=== PATIENT | male | born 1940 | race Caucasian/White ===

== ENCOUNTER 2017-08-10 08:26 | Day surgery (SDC) | payer MEDICARE ==
[2017-08-07 12:45] VITALS: BMI 27.6
--- NOTE | 2017-08-10 01:02 | HP ---
HISTORY OF PRESENT ILLNESS: Mr. Ruiz is a very pleasant 77-year-old gentleman who presented for wicho mbar back pain that sits over his left-sided lower back and hip that withstand over the proximal ante rior thigh. He has had surgery last year in the [place] area for right lower extremity radiculopathy and had done well from that; however, more recently he has experienced different pain. Dr. Darius brown has injected this area with some minimal improved, but has now reached a point where he would like to pursue additional options. CT from [facility] reveals facet fracture to the right at L4. There also is an underlying spondylolisthesis at L4-L5 with foraminal compromise to the left with movement on flexion and extension films. He denies any weakness, but does have difficulty with walking. PAST MEDICAL HISTORY: Significant for prostate cancer, hypertension. CURRENT MEDICATIONS: Amlodipine, zolpidem, latanoprost, valacyclovir, fluticasone, VESIcare, Lupron, Amitiza, meloxicam, and Lyrica. ALLERGIES: No known drug allergies. PHYSICAL EXAMINATION: NEUROLOGIC: Patient is alert and oriented x3. His gait is mildly antalgic. Lower extremity motor e xam is normal. ASSESSMENT: Lumbar radiculopathy and spondylolisthesis. PLAN: Dr. Priest met with the patient, reviewed imaging and ultimately advocated for an L4-L5 fusion. He explained to the patient the risks, benefits, and alternatives to the procedure. The patient ex pressed understanding and would like to move forward with surgery as discussed. The patient is menta dereky competent and capable of making medical decisions for himself and we will move forward with surge ry as planned. Evans Way PA-C, dictating for Dr. Priest.
[2017-08-10] MEDS ORDERED: CEFAZOLIN/Water 2 GM/20 ML SYRINGE ONE ×2 (09:05→14:23)
[2017-08-10] MEDS ORDERED: Midazolam HCl 2 mg/2 ml Vial ONE (10:11)
[2017-08-10] MEDS ORDERED: Fentanyl 100 MCG/2 ML VIAL ONE ×3 (10:11→13:18)
[2017-08-10] MEDS ORDERED: Thrombin 5000 UNITS/5 ML VIAL ONE (10:18)
[2017-08-10] MEDS ORDERED: Bupivacaine 0.5% 10 ML VIAL ONE (10:18)
[2017-08-10] MEDS ORDERED: Lidocaine 2% w/Epinephrine 1:200K 20 ML VIAL ONE (11:47)
[2017-08-10] MEDS ORDERED: Ondansetron HCl/PF 4 MG/2 ML Vial ONE (12:01)
[2017-08-10] MEDS ORDERED: Propofol 200 MG/20 ML VIAL ONE (12:01)
[2017-08-10] MEDS ORDERED: PHENYLEPHRINE-NS 100 MCG/ML 10 ML SYRINGE ONE (12:01)
[2017-08-10] MEDS ORDERED: Labetalol 100 MG/20 ML MDV ONE (12:01)
[2017-08-10] MEDS ORDERED: Lidocaine 1% PF 5 ML VIAL ONE (12:01)
[2017-08-10] MEDS ORDERED: Dexamethasone 20 MG/5 ML VIAL ONE (12:01)
[2017-08-10] MEDS ORDERED: Glycopyrrolate 0.2 MG/ML 5 ML SYRINGE ONE (12:01)
[2017-08-10] MEDS ORDERED: ePHEDrine/0.9% NaCl/PF SYRINGE 50 mg/10 ml ONE (12:01)
--- NOTE | 2017-08-10 12:46 | OP ---
DATE OF PROCEDURE: 08/10/2017 SURGEON: Larry Priest M.D. ASSOCIATE PROFESSOR OF VIOLIN: Filiberto Way PA-C. INDICATION: Pain. PREOPERATIVE DIAGNOSIS: L4 upon L5 spondylolysis with spondylolisthesis. PROCEDURE: Bilateral L4-5 facetectomy, bilateral L4-5 posterolateral instrumented fusion. ANESTHESIA: General. TECHNIQUE: The patient was brought into the operating room and placed under general anesthesia. He was flipped from a supine to a prone position on the operating room table. A linear incision was tila nned over the L4-L5 segment. After prepping and draping and after appropriate operative pause, the i ncision was created. Soft tissues were swept away from midline. Self-retaining retractors were plac ed in the wound for optimal exposure. After confirming the appropriate levels with C-arm fluoroscopy , the facet joints were removed using Adson rongeurs, high-speed cutting drill bits, and Kerrisons. After identifying the pedicles at L4 and L5 as well as the respective exiting and descending nerve ro ots, pedicle screws were placed with the aid of C-arm fluoroscopy. An intraoperative 3D CT scan coul d not be performed, but an AP and lateral film was obtained. Rods were then placed across the screw heads and final tightened. Allograft and autograft material was placed in the lateral confines of th e instrumentation construct. The wound was irrigated. Hemostasis was maintained throughout. The wo und was then closed in anatomic layers and a pressure dressing was applied. There were no known proc edural complications.
[2017-08-10] MEDS ORDERED: Tamsulosin HCl 0.4 MG CAP ONE (12:57)
== END 2017-08-10 15:41 | disposition home or self-care (01) ==
LOC: SDC 08:26
PROVIDERS: ATTEND Neurological Surgery
PROC: 0SG1071 Fusion of 2 or more Lumbar Vertebral Joints with Autologous Tissue Substitute, Posterior Approach, Posterior Column, Open Approach (ICD-10-PCS; principal; 2017-08-10)
DX: M43.16 Spondylolisthesis, lumbar region (principal); M54.16 Radiculopathy, lumbar region; I10 Essential (primary) hypertension; Z79.899 Other long term (current) drug therapy; Z85.46 Personal history of malignant neoplasm of prostate; Z98.890 Other specified postprocedural states
CPT/HCPCS: 20930; 20936; 22612; 22840; 76001; 93005; 96374; C1713 ×2; 93010; J1100; J2001; J2250; J2405; J2704; J3010; J3490

== ENCOUNTER 2017-09-24 10:25 | Outpatient (CLI) | payer MEDICARE ==
--- NOTE | 2017-09-24 11:22 | RAD ---
TWO VIEWS LUMBAR SPINE: Date: 09-24-17 Comparison: 02-10-17 History: Re-evaluate lumbar spine following surgery. FINDINGS: There are five lumbar type vertebral bodies with bilateral pedicle screws present at the L4 and L5 le vels. There are bilateral vertically oriented interlocking rods. There is anterolisthesis of L4 on L5 measuring 1.5 cm, slightly improved when compared to prior imaging. There is osseous fusion at the L 5-S1 intervertebral disc level with anterior osteophyte formation. There is disc space narrowing at L 1-2, L2-3, L3-4, and L4-5 with L2-3 and L3-4 anterior osteophyte formation. No evidence for hardware failure. There are small calcifications in the right upper quadrant which may signify gallstones. IMPRESSION: Degenerative and posterior operative changes within the lumbar spine as described above. POS: [facility]
== END 2017-09-24 10:26 | disposition home or self-care (01) ==
LOC: TBSIIMAG 10:25
PROVIDERS: ATTEND Neurological Surgery
DX: M54.5 Low back pain (principal); M47.896 Other spondylosis, lumbar region; Z98.890 Other specified postprocedural states
CPT/HCPCS: 72100

== ENCOUNTER 2017-12-24 10:11 | Outpatient (CLI) | payer MEDICARE ==
--- NOTE | 2017-12-24 12:29 | CT ---
LUMBAR SPINE CT WITHOUT CONTRAST: DATE: 12/24/17. COMPARISON: 12/04/16. HISTORY: Back spasms, History of lumbar spine surgery, lumbar radiculopathy. TECHNIQUE: Serial axial CT imaging at 3 mm intervals through the lumbar spine without contrast. Coronal and sag ittal reformatted imaging obtained. FINDINGS: Evaluation for central canal and neural foraminal stenosis is limited on routine CT. Cholelithiasis is noted. There is scattered atherosclerotic calcification of the abdominal aorta and its branches. Moderate degenerative change of bilateral sacroiliac joints noted. Partially imaged reservoir for p enile implant noted in ventral aspect of left lower abdomen. Bilateral pedicle screws are present at L4 and L5 with vertically oriented interlocking rods. Anterolisthesis of L4 on L5 measures 7 mm. T12-L1: No osseous cause of significant central canal or neural foraminal stenosis. Mild right-side d facet hypertrophy. L1-2: There is disk space narrowing with vacuum disk formation and mild disk bulge causing at least mild central canal stenosis. There is right-sided facet hypertrophy with moderate right neural valery inal stenosis. L2-3: There is disk space narrowing and a vacuum disk with disk bulge. Bilateral facet hypertrophy and hypertrophy of the ligamentum flavum noted, right greater than left. Mild to moderate central ca nal stenosis noted with mild left and moderate right neural foraminal stenosis. L3-4: Disk space narrowing, posterior disk-osteophyte complex, anterior osteophyte formation, and va cuum disk formation noted. Bilateral facet hypertrophy. Mild right and moderate left neural foramin al stenosis. Mild central canal stenosis suspected. L4-5: There is disk space narrowing and vacuum disk formation. There is bilateral facet hypertrophy . There is evidence of bilateral facetectomy. Moderate neural foraminal narrowing is suspected. Ev aluation for central canal stenosis is limited secondary to streak artifact. L5-S1: Mild bilateral facet hypertrophy. Partial fusion at the intervertebral disk level. No signi ficant central canal or neural foraminal stenosis appreciated. No acute fracture or dislocation. No evidence for hardware failure. IMPRESSION: Multilevel degenerative change and postoperative change present within the lumbar spine as detailed a luciano. POS: [facility]
== END 2017-12-24 10:12 | disposition home or self-care (01) ==
LOC: TBSIIMAG 10:11
PROVIDERS: ATTEND Neurological Surgery
DX: M47.26 Other spondylosis with radiculopathy, lumbar region (principal); Z98.890 Other specified postprocedural states
CPT/HCPCS: 72131

== ENCOUNTER 2018-07-08 09:42 | Outpatient (CLI) | payer MEDICARE ==
--- NOTE | 2018-07-08 17:17 | MRI ---
MRI OF BRAIN WITH AND WITHOUT CONTRAST MRI IAC WITH AND WITHOUT CONTRAST 07/08/18 CLINICAL HISTORY: 78-year-old male with history of dizziness. FINDINGS: There is mild parenchymal volume loss with compensatory dilatation of ventricular system. Minimal chr onic ischemic disease of the cerebral white matter is present. No acute territorial infarction, mass effect of midline shift. There is no evidence mass or pathologic enhancement of either CP angle ciste rn. Skull base flow voids are maintained. No pathologic intra-axial enhancement. IMPRESSION: 1. No acute intracranial abnormality. 2. No evidence of mass or pathologic enhancement involving either 7th or 8th cranial nerve compl ex. POS: [facility]
== END 2018-07-08 09:43 | disposition home or self-care (01) ==
LOC: SCSMRI 09:42
PROVIDERS: ATTEND Otolaryngology Plastic Surgery within the Head & Neck
DX: H83.2X3 Labyrinthine dysfunction, bilateral (principal)
CPT/HCPCS: 70553; 82565

== ENCOUNTER 2018-07-13 14:09 | Outpatient (CLI) | payer MEDICARE | END 2018-07-13 14:10 | disposition home or self-care (01) | LOC: CTENTCT 14:09 | PROVIDERS: ATTEND Otolaryngology Plastic Surgery within the Head & Neck | DX: J32.9 Chronic sinusitis, unspecified (principal) | CPT/HCPCS: 70486 ==

== ENCOUNTER 2019-01-07 19:43 | Emergency (ER) | payer MEDICARE | END 2019-01-07 20:14 | disposition home or self-care (01) | LOC: ERS 19:43 | DX: S42.301A Unspecified fracture of shaft of humerus, right arm, initial encounter for closed fracture (principal); I10 Essential (primary) hypertension; E78.5 Hyperlipidemia, unspecified; Z79.891 Long term (current) use of opiate analgesic; Z79.899 Other long term (current) drug therapy; W18.30XA Fall on same level, unspecified, initial encounter | CPT/HCPCS: 99283 ==

== ENCOUNTER 2019-07-25 10:28 | Outpatient (CLI) | payer MEDICARE ==
--- NOTE | 2019-07-25 12:41 | MRI ---
MRI Cervical spine without contrast: HISTORY: Right hand and arm numbness. Cervical spine stenosis. COMPARISON: None FINDINGS: The craniocervical junction is unremarkable. There are degenerative changes seen at the articulation of the odontoid with the anterior arch of C1. No significant cord signal abnormality. Paravertebral soft tissues have a normal appearance and normal signal intensity. C1-2:No significant stenosis. C2-3: There is a disc osteophyte complex with central disc protrusion which narrows the ventral subar achnoid space. This does contact the spinal cord but does not appear to result in significant mass effect on the spinal cord. The neural foramina are patent C3-4: There is a mild disc osteophyte complex with narrowing of the ventral subarachnoid space. There is slight flattening of the anterior aspect of the spinal cord. Facet degenerative changes are present at this level. Mild bilateral neural foraminal narrowing is present. C4-5: There is loss of intervertebral disc height. There is a broad-based disc osteophyte complex pre sent. This narrows the ventral subarachnoid space and results in flattening of the anterior aspect of the spinal cord. Mild left and moderate right-sided neural foraminal narrowing is present. C5-6: There is loss of intervertebral disc height. Disc osteophyte complex is present resulting in mi ld narrowing of the central spinal canal with slight flattening of the anterior aspect of the spinal cord. Moderate to severe bilateral neural foraminal narrowing is present. Mild facet hypertrop hic changes are noted. C6-7: There is loss of intervertebral disc space height with mild endplate degenerative changes. Ther e is a broad-based disc osteophyte complex resulting in slight effacement of the ventral aspect of the subarachnoid space. Moderate to severe bilateral neural foraminal narrowing is present. C7-T1: No significant disc bulge or disc herniation is seen. There are facet degenerative changes. Ce ntral spinal canal and neural foramina are patent this level. IMPRESSION: Multilevel degenerative changes with varying degrees of neural foraminal narrowing with moderate and moderate to severe degrees of neural foraminal narrowing seen at multiple levels.
== END 2019-07-25 10:29 | disposition home or self-care (01) ==
LOC: SCSMRI 10:28
PROVIDERS: ATTEND Orthopaedic Surgery Hand Surgery
DX: M48.02 Spinal stenosis, cervical region (principal); M47.22 Other spondylosis with radiculopathy, cervical region
CPT/HCPCS: 72141

== ENCOUNTER 2019-08-02 03:08 | Inpatient (IN) | payer MEDICARE ==
[2019-08-02] MEDS ORDERED: Dextrose 5 % And 0.9 % NaCl 1,000 ML IV SCH (06:15)
[2019-08-02] MEDS ORDERED: Morphine 4 MG/ML VIAL SLOW IVP PRN (06:51)
[2019-08-02] MEDS ORDERED: Morphine 2 MG/ML SYRINGE SLOW IVP PRN (06:51)
[2019-08-02] MEDS ORDERED: hydrALAZINE 20 MG/ML VIAL SLOW IVP PRN (06:51)
[2019-08-02] MEDS ORDERED: Ondansetron ODT 4 MG TAB PO PRN (06:51)
[2019-08-02] MEDS ORDERED: Ondansetron PF 4 MG/2 ML Vial IVP PRN (06:51)
[2019-08-02] MEDS ORDERED: Acetaminophen 500 MG TAB PO PRN (06:54)
[2019-08-02] MEDS ORDERED: Ketorolac Tromethamine 30 MG/ML VIAL IVP PRN (06:54)
[2019-08-02] MEDS ORDERED: traMADol HCl 50 MG TAB PO PRN ×2 (06:56→20:12)
[2019-08-02] MEDS ORDERED: Trospium 20 MG TAB PO PRN (07:11)
--- NOTE | 2019-08-02 07:37 | HP ---
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 He is busy ambulating independently during the day and is very active. He reports an episode of epigastric right upper quadrant pain last week that resolved and now reoccurred last night, who presented to the emergency room. CT angio obtained for this epigastric pain, revealing gallstones, inflammation of the gallbladder. The patient was transferred to this facility, where ultrasound reveals gallbladder sludge, normal bile duct caliber, and normal liver function tests. EKG and troponins were normal. ALLERGIES: NONE. TOBACCO: None. ALCOHOL: Rarely. MEDICATIONS: At home, he takes, 1. Valtrex 500 mg at bedtime. 2. Tramadol p.r.n. pain. 3. Ambien 10 mg at bedtime. 4. VESIcare 10 mg p.o. p.r.n. 5. Aspirin 81 mg a day. 6. Amlodipine 10 mg at bedtime. 7. Voltaren 50 mg t.i.d. PAST MEDICAL HISTORY: Hypertension, chronic back pain, elevated cholesterol. The patient has never had a colonoscopy. He has never had a cardiac event or cardiac evaluation to his knowledge. PAST SURGICAL HISTORY: Right shoulder surgery last year Dr. Villanueva. Lumbar surgery by Dr. Trenton Priest in the past and prior to that in [place]. Bilateral inguinal hernia repair. Right ankle ORIF. Open prostatectomy. The patient wears a brief, has occasional incontinence. He is ambulatory independently. REVIEW OF SYSTEMS: Ten-point noncontributory. No cardiac history known. No chest pain. No chest pressure symptoms. PHYSICAL EXAMINATION: VITAL SIGNS: Temperature 98 degrees, heart rate 63, blood pressure 167/81, weight 95 kg. HEAD, EYES, EARS, NOSE, AND THROAT: Unremarkable. Sclerae nonicteric. SKIN: Nonjaundiced. LYMPHATICS: Axilla, neck, and groins without lymphadenopathy. LUNGS: Clear to auscultation. CARDIAC: Regular rate and rhythm. No murmur or gallop. ABDOMEN: Soft. Minimal tenderness, epigastrium and right upper quadrant. EXTREMITIES: Unremarkable. LABORATORY DATA: Sodium 144, potassium 3.7, BUN 21, creatinine 1.03. Liver function tests normal. Urinalysis clear. White count 8, hemoglobin 13, platelet count 150,000. ASSESSMENT AND PLAN: 1. Cholecystitis, cholelithiasis. We recommend laparoscopic video cholecystectomy. Risks of infection, bleeding, visceral biliary injury were discussed. He consents. We will plan laparoscopic cholecystectomy today. Most likely discharge home postoperatively. He understands risks of surgery and consents. Questions answered. 2. Hypertension. 3. Elevated cholesterol. 4. Never has had a colonoscopy. Job ID: [id number]
--- NOTE | 2019-08-02 07:43 | ULT ---
PRELIMINARY REPORT/[facility]/EMERGENCY AFTER HOURS PROCEDURE EXAM: US Abdomen Limited, Right Upper Quadrant. CLINICAL HISTORY: RUQ pain, distended abd, constipation panc partially obscured liver wnl as seen, partially obscured due to bowel gas gb mostly obscured, small amount of sludge, no gallstones or pericholecystic fluid seen positive franco cbd wnl rt kid wnl as seen difficult study due to bowel gas TECHNIQUE: Real-time ultrasound of the right upper quadrant with image documentation. COMPARISON: None provided. FINDINGS: LIVER: Unremarkable. GALLBLADDER: No gallstone. Small amounts of sludge within the gallbladder. Borderline wall thickeni ng measuring up to 4 mm. No pericholecystic fluid. Tenderness overlying the gallbladder compatible with a positive Franco sign. COMMON BILE DUCT: No dilation. PANCREAS: The pancreas is obscured by overlying bowel gas. RIGHT KIDNEY: No hydronephrosis. IMPRESSION: No gallstones. Small amounts of sludge within the gallbladder with borderline wall thickening. No p ericholecystic fluid. Tenderness overlying the gallbladder compatible with a positive Franco sign. Findings are indeterminate for acute acalculous cholecystitis. Further evaluation with nuclear medi cine HIDA scan may be obtained if clinically indicated. ELECTRONICALLY SIGNED BY: Chayito Stovall MD Aug 02, 2019 4:48:20 AM BINDERY SUPERVISOR This report is intended for review by the ordering physician only, in accordance of law. If you recei ve this report in error, please call [facility] at [phone]. FINAL REPORT GALLBLADDER ULTRASOUND: I agree with the report given by Dr. Chayito Stovall of [facility]. Gallbladder is mostly obscured due to bowel gas. The calcified gallstones seen on the CTA from same d ate not seen on the ultrasound. Transcribed Date/Time: 08/02/2019 8:29 AM
[2019-08-02] MEDS: Famotidine/PF 20 mg/2ml Vial SLOW IVP SCH (09:41)
[2019-08-02] MEDS: Aspirin 81 mg Enteric Coated Tablet PO SCH (09:44)
[2019-08-02] MEDS: D5 1/2 NS w/20 mEq KCL 1,000 ML IV SCH ×2 (09:48→17:03)
[2019-08-02 10:35] VITALS: BMI 27.7
[2019-08-02] MEDS ORDERED: Rocuronium Bromide 10 MG/ML (10ML VIAL) ONE (12:45)
[2019-08-02] MEDS ORDERED: PHENYLEPHRINE-NS 100 MCG/ML 10 ML SYRINGE ONE (12:45)
[2019-08-02] MEDS ORDERED: PROPOFOL 200 MG/20 ML VIAL ONE (12:45)
[2019-08-02] MEDS ORDERED: Ketorolac Tromethamine 30 MG/ML VIAL ONE (12:45)
[2019-08-02] MEDS ORDERED: Dexamethasone 20 MG/5 ML VIAL ONE (12:45)
[2019-08-02] MEDS ORDERED: Glycopyrrolate 0.2 MG/ML 5 ML SYRINGE ONE (12:45)
[2019-08-02] MEDS ORDERED: Ondansetron PF 4 MG/2 ML Vial ONE (12:45)
[2019-08-02] MEDS ORDERED: Lidocaine 1% PF 5 ML VIAL ONE (12:45)
[2019-08-02] MEDS ORDERED: Succinylcholine Chloride 20 MG/ML 10 ml SYRINGE FS ONE (12:45)
[2019-08-02] MEDS ORDERED: Lidocaine 1% w/Epinephrine 1:100K 20 ML VIAL ONE (18:20)
[2019-08-02] MEDS ORDERED: Bupivacaine PF 0.5% 30 ML VIAL ONE (18:20)
[2019-08-02] MEDS ORDERED: Fentanyl 100 MCG/2 ML VIAL ONE (18:44)
[2019-08-02] MEDS ORDERED: Levofloxacin 500 mg/D5W 100 ml Premix Bag ONE (18:47)
[2019-08-02] MEDS ORDERED: HYDROmorphone 2 MG/ML VIAL SLOW IVP PRN (19:57)
[2019-08-02] MEDS ORDERED: Promethazine HCl 25 MG/ML VIAL SLOW IVP PRN (19:57)
[2019-08-02] MEDS ORDERED: Labetalol HCl 100 MG/20 ML VIAL ONE (20:10)
[2019-08-02] MEDS ORDERED: Ibuprofen 600 MG TAB PO PRN (20:12)
[2019-08-02] MEDS ORDERED: valACYclovir 500 MG TAB PO SCH (21:00)
[2019-08-02] MEDS ORDERED: Non-Formulary Item 1 EACH (Zolpidem Tartrate [Ambien] 10 MG) PO SCH (21:00)
[2019-08-02] MEDS ORDERED: Enoxaparin Sodium 40 MG/0.4 ML SYRINGE SC SCH (21:00)
[2019-08-02] MEDS ORDERED: Zolpidem Tartrate 5 MG TAB PO SCH (21:00)
[2019-08-02] MEDS ORDERED: Gabapentin 300 MG CAP PO SCH (21:00)
[2019-08-02] MEDS: Carvedilol 6.25 MG TAB PO SCH (23:44)
[2019-08-02] MEDS: Amlodipine 10 MG TAB PO SCH (23:46)
[2019-08-03] MEDS: Oxybutynin 5 MG TAB PO SCH ×2 (00:14→08:46)
--- NOTE | 2019-08-03 02:22 | OP ---
DATE OF PROCEDURE: 08/02/2019 PREOPERATIVE DIAGNOSES: Acute chronic cholecystitis, cholelithiasis. POSTOPERATIVE DIAGNOSES: Acute chronic cholecystitis, cholelithiasis. PROCEDURE PERFORMED: Laparoscopic video cholecystectomy. ANESTHESIA: General, local 0.5% Marcaine with 30 mL mixed with 1% Xylocaine with epinephrine 30 mL. DESCRIPTION OF PROCEDURE: The patient was taken to the operating room, where under general anesthesia, abdomen was clipped of hair, prepared with ChloraPrep, and draped in routine fashion. Local anesthetic was infiltrated in the skin and subcutaneous tissue about each port site. Infraumbilical incision was made. Pneumoperitoneum to 15 mmHg was obtained with a Veress needle, replaced with a 5 port, laparoscope was inserted. Right subxiphoid incision was made and 11 port placed. Right subcostal incision was made at midclavicular entrance line and the 5 port was placed. The gallbladder was acutely inflamed. Liver appeared to be normal. Omental adhesions taken down from the gallbladder, fundus, and body, requiring some evacuation of the gallbladder to allow grasping it. Cystic artery was dissected free. Critical view obtained. Cystic artery was double clipped proximally and divided. Gallbladder was dissected free from liver bed, obtaining good hemostasis prior to division of the final peritoneal attachments. Gallbladder and contents placed in Endobag and removed. Good hemostasis was obtained with cautery and Dianne. Irrigant and pneumoperitoneum were evacuated. All instruments were removed. Subxiphoid fascia was approximated with [id number] suture of 0 Vicryl UR needle. Skin incision was approximated with subdermal 4-0 Monocryl and [place] glue applied. Job ID: [id number]
[2019-08-03 06:31] LABS: #Lymphocytes 0.9 thou/uL (1.20-3.40); #Monocytes 0.9 thou/uL (0.11-0.59); #Neutrophils 9.5 thou/uL (1.40-6.50); %Basophils 0.1 % (0.0-1.0); %Eosinophils 0.1 % (0.0-10.0); %Lymphocytes 7.7 % (21.0-51.0); %Monocytes 7.6 % (0.0-10.0); %Neutrophils 84.5 % (42.0-75.0); Hemoglobin 13.3 g/dL (14.0-18.0); Mean Corpuscular HGB CONC 32.7 g/dL (32.0-36.0); Mean Corpuscular Hemoglobin 31.8 pg (27.0-31.0); Mean Corpuscular Volume 97.3 fL (78.0-98.0); Mean Platelet Volume 11.1 fL (7.4-10.4); Platelet Count 128 thou/uL (130-400); RBC Distribution Width 13.3 % (11.5-14.5); Red Blood Cell (RBC) Count 4.18 mill/uL (4.70-6.10); White Blood Cell (WBC) Count 11.3 thou/uL (4.8-10.8)
[2019-08-03] MEDS: Amlodipine 10 MG TAB PO SCH (06:44)
[2019-08-03] MEDS: Famotidine/PF 20 mg/2ml Vial SLOW IVP SCH ×2 (06:44→08:45)
[2019-08-03 06:50] LABS: ALT (SGPT) 46 U/L (8-55); AST (SGOT) 48 U/L (5-34); Albumin 3.9 g/dL (3.4-4.8); Alkaline Phosphatase 88 U/L (40-110); Anion Gap 11 mmol/L (10-20); BUN (Urea Nitrogen) 10 mg/dL (8.4-25.7); Bilirubin, Total 0.6 mg/dL (0.2-1.2); Calc. Creatinine Clearance 98 mL/min (70-130); Calcium 9.5 mg/dL (7.8-10.44); Carbon Dioxide 26 mmol/L (23-31); Chloride 107 mmol/L (98-107); Estimated GFR-MDRD Greater than 90; Globulin 2.6 g/dL (2.4-3.5); Glucose 150 mg/dL (83-110); Potassium 4.7 mmol/L (3.5-5.1); Protein, Total 6.5 g/dL (5.8-8.1); Sodium 139 mmol/L (136-145)
[2019-08-03 08:11] VITALS: BP 145/86; TEMP 98.5
--- NOTE | 2019-08-03 08:12 | PRG ---
DATE OF SERVICE: 08/03/2019 SUBJECTIVE: Mr. Ruiz is doing well today. He is tolerating his diet. He has not had any nausea or vomiting. He is ready for discharge home. OBJECTIVE: VITAL SIGNS: 98 degrees, 82, and 154/82. LUNGS: Clear to auscultation. No wheezing. CARDIAC: Regular rate and rhythm without murmur or gallop. ABDOMEN: Soft and nontender. Postoperative tenderness. Wounds, trocar site scars look good. EXTREMITIES: Unremarkable. LABORATORY DATA: White count of 11 and hemoglobin of 13. Basic metabolic profile is normal. Liver function tests normal. ASSESSMENT AND PLAN: Status post laparoscopic cholecystectomy for acute and chronic cholecystitis and cholelithiasis. We recommend discharge home today. We will follow up in my office in 2 to 3 weeks. Diet and activity as tolerated. Shower and bathe at any time. Job ID: [id number]
[2019-08-03] MEDS: Aspirin 81 mg Enteric Coated Tablet PO SCH (08:45)
[2019-08-03] MEDS ORDERED: Magnesium Oxide 250 MG TAB PO SCH (09:00)
[2019-08-03] MEDS ORDERED: [UNRECOGNIZED DRUG - REMARK] PO SCH (09:00)
[2019-08-03] MEDS ORDERED: Lisinopril 10 MG TAB PO SCH (09:00)
[2019-08-03] MEDS ORDERED: Atorvastatin Calcium 20 MG TAB PO SCH (09:00)
[2019-08-03] MEDS: Carvedilol 6.25 MG TAB PO SCH (10:05)
--- NOTE | 2019-08-03 13:53 | DIS ---
DATE OF ADMISSION: 08/02/2019 DATE OF DISCHARGE: 08/03/2019 DISCHARGE DIAGNOSES: Acute on chronic cholecystitis, cholelithiasis. PROCEDURES IN THIS HOSPITALIZATION: CT scan in [place], ultrasound in this facility. EKG and troponin are normal in the emergency room. 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 CT angio negative for dissection, but revealing gallstones and inflammation of the gallbladder. Ultrasound at this facility once transferred revealed the same. The patient received intravenous antibiotics, taken to the operating room for laparoscopic video cholecystectomy. Postoperatively, he did well, has tolerated his diet, and he will resume his home medications, Valtrex, tramadol, Ambien, VESIcare, aspirin, amlodipine, Voltaren, and take [id number] Tylenol and Motrin in addition as indicated. Diet and activity as tolerated. Shower and bathe whenever. Follow up in my office in 2 to 3 weeks. Job ID: [id number]
== END 2019-08-03 10:50 | disposition home or self-care (01) | DRG 419 ==
LOC: ERS 03:08 → 3SE 04:53
PROVIDERS: ADMIT Specialist; ATTEND Specialist
PROC: 0FT44ZZ Resection of Gallbladder, Percutaneous Endoscopic Approach (ICD-10-PCS; principal; 2019-08-02)
DX: K80.12 Calculus of gallbladder with acute and chronic cholecystitis without obstruction (principal); Z79.82 Long term (current) use of aspirin; Z79.899 Other long term (current) drug therapy; I10 Essential (primary) hypertension; M54.9 Dorsalgia, unspecified; G89.29 Other chronic pain; Z98.890 Other specified postprocedural states
CPT/HCPCS: 36415; 76705; 80053; 85025; 88304; 96365; J0360; J1100; J1650; J1885; J1956; J2001; J2270; J2405; J2704; J3010; S0020; S0028

== ENCOUNTER 2021-07-01 09:42 | Outpatient (CLI) | payer MEDICARE | END 2021-07-01 09:43 | disposition home or self-care (01) | LOC: BICMAMMO 09:42 | PROVIDERS: ATTEND Family Medicine | DX: M81.0 Age-related osteoporosis without current pathological fracture (principal); M85.852 Other specified disorders of bone density and structure, left thigh | CPT/HCPCS: 77080 ==

== ENCOUNTER 2021-11-08 08:38 | Outpatient (CLI) | payer MEDICARE ==
[2021-11-08 18:25] LABS: SARS-CoV-2 PCR by NAA Not Detected (NotDetected)
== END 2021-11-08 08:39 | disposition home or self-care (01) ==
LOC: LABBT 08:38
PROVIDERS: ATTEND Neurological Surgery
DX: Z01.818 Encounter for other preprocedural examination (principal); M48.061 Spinal stenosis, lumbar region without neurogenic claudication; M54.16 Radiculopathy, lumbar region; Z20.822 Contact with and (suspected) exposure to COVID-19
CPT/HCPCS: 93005; U0003; U0005; 93010

== ENCOUNTER 2021-11-13 06:40 | Day surgery (SDC) | payer MEDICARE ==
[2021-11-11 10:37] VITALS: BMI 29.2
[2021-11-13] MEDS ORDERED: Thrombin 5000 UNITS/5 ML VIAL ONE (07:33)
[2021-11-13] MEDS ORDERED: Bupivacaine PF 0.5% 30 ML VIAL ONE (07:33)
[2021-11-13] MEDS ORDERED: EPINEPHrine 1 MG/ML AMP ONE (07:33)
[2021-11-13] MEDS ORDERED: fentaNYL Citrate/PF 100 MCG/2 ML SYRINGE ONE (07:58)
[2021-11-13] MEDS ORDERED: CEFAZOLIN 2 GM VIAL ONE ×2 (08:07→13:35)
[2021-11-13] MEDS ORDERED: Sodium Chloride 0.9% 100 ML ONE ×2 (08:08→13:36)
[2021-11-13] MEDS ORDERED: Rocuronium Bromide 10 MG/ML (10ML VIAL) ONE (08:13)
[2021-11-13] MEDS ORDERED: ePHEDrine 50 MG/ML VIAL ONE (08:13)
[2021-11-13] MEDS ORDERED: PROPOFOL 200 MG/20 ML VIAL ONE (08:13)
[2021-11-13] MEDS ORDERED: Glycopyrrolate 0.2 MG/ML 5 ML SYRINGE ONE (08:13)
[2021-11-13] MEDS ORDERED: Ondansetron PF 4 MG/2 ML Vial ONE (08:13)
[2021-11-13] MEDS ORDERED: Dexamethasone 20 MG/5 ML VIAL ONE (08:13)
[2021-11-13] MEDS ORDERED: PHENYLEPHRINE-NS 100 MCG/ML 10 ML SYRINGE ONE (08:13)
[2021-11-13] MEDS ORDERED: Succinylcholine 200 MG/10 ml SYRINGE FS ONE (08:13)
[2021-11-13] MEDS ORDERED: Lidocaine 1% PF 5 ML VIAL ONE (08:13)
[2021-11-13] MEDS ORDERED: Ondansetron PF 4 MG/2 ML Vial IM PRN (10:20)
[2021-11-13] MEDS ORDERED: Phenylephrine 10 MG/ML VIAL ONE (10:27)
[2021-11-13] MEDS ORDERED: SUGAMMADEX SODIUM 200 MG/2 ML VIAL ONE (10:27)
[2021-11-13] MEDS ORDERED: Sodium Chloride 0.9% 1,000 ML IV SCH (10:30)
[2021-11-13] MEDS ORDERED: diphenhydrAMINE 25 MG CAP PO PRN (10:30)
[2021-11-13] MEDS ORDERED: Acetaminophen 650 MG Suppository PR PRN (10:30)
[2021-11-13] MEDS ORDERED: Acetaminophen/Codeine 30-300mg Tablet PO PRN ×2 (10:30)
[2021-11-13] MEDS ORDERED: Morphine 2 MG/ML VIAL SLOW IVP PRN (10:30)
[2021-11-13] MEDS ORDERED: diphenhydrAMINE 50 MG/ML VIAL IVP PRN (10:30)
[2021-11-13] MEDS ORDERED: Tamsulosin HCl 0.4 MG CAP PO SCH (10:30)
[2021-11-13] MEDS ORDERED: Morphine 4 MG/ML VIAL SLOW IVP PRN (10:30)
[2021-11-13] MEDS ORDERED: Acetaminophen 325 MG TAB PO PRN (10:30)
[2021-11-13] MEDS ORDERED: CEFAZOLIN 2 GM in Sodium Chloride 0.9% 100 ML IVPB SCH (16:00)
[2021-11-14] MEDS ORDERED: Tamsulosin HCl 0.4 MG CAP PO SCH (06:00)
== END 2021-11-13 15:25 | disposition home or self-care (01) ==
LOC: SDC 06:40
PROVIDERS: ATTEND Neurological Surgery
PROC: 01NB0ZZ Release Lumbar Nerve, Open Approach (ICD-10-PCS; principal; 2021-11-13)
DX: M48.062 Spinal stenosis, lumbar region with neurogenic claudication (principal); M54.16 Radiculopathy, lumbar region; E78.5 Hyperlipidemia, unspecified; M81.0 Age-related osteoporosis without current pathological fracture; I10 Essential (primary) hypertension; M19.90 Unspecified osteoarthritis, unspecified site; Z79.899 Other long term (current) drug therapy; Z98.1 Arthrodesis status
CPT/HCPCS: 76000; J0171; J1100; J2370; J2405; J2704; J3490; S0020

== ENCOUNTER 2022-07-22 08:33 | Outpatient (CLI) | payer MEDICARE | END 2022-07-22 08:34 | disposition home or self-care (01) | LOC: TBSIIMAG 08:33 | PROVIDERS: ATTEND Student in an Organized Health Care Education/Training Program | DX: M50.11 Cervical disc disorder with radiculopathy, high cervical region (principal) | CPT/HCPCS: 72141 ==

== ENCOUNTER 2024-03-15 09:57 | Day surgery (SDC) | payer OTHER ==
[2024-03-14 09:59] VITALS: BMI 26.4
[2024-03-15] MEDS ORDERED: Betamet Acet/Betamet Na Ph 30 MG/5 ML VIAL ONE (10:04)
[2024-03-15] MEDS ORDERED: Bacitracin Zinc Ointment 30 gm TUBE ONE (10:04)
[2024-03-15] MEDS ORDERED: Bupivacaine PF 0.5% 30 ML VIAL ONE (10:04)
[2024-03-15] MEDS ORDERED: CEFAZOLIN 2 GM VIAL ONE (10:23)
[2024-03-15] MEDS ORDERED: Sodium Chloride 0.9% 100 ML ONE (10:23)
[2024-03-15] MEDS ORDERED: Lidocaine 1% PF 5 ML VIAL ONE (10:37)
[2024-03-15] MEDS ORDERED: PROPOFOL 20 ML ONE (10:37)
[2024-03-15] MEDS ORDERED: fentaNYL 50 mcg/mL 1 mL Vial ONE (10:37)
[2024-03-15] MEDS ORDERED: PHENYLEPHRINE-NS 100 MCG/ML 10 ML SYRINGE ONE (10:47)
[2024-03-15] MEDS ORDERED: Ondansetron PF 4 MG/2 ML Vial ONE (10:47)
[2024-03-15] MEDS ORDERED: ePHEDrine Sulfate 50 MG/10 ML VIAL ONE (10:47)
== END 2024-03-15 13:45 | disposition home or self-care (01) ==
LOC: SDC 09:57
PROVIDERS: ATTEND Orthopaedic Surgery Hand Surgery
PROC: 01N50ZZ Release Median Nerve, Open Approach (ICD-10-PCS; principal; 2024-03-15)
DX: G56.02 Carpal tunnel syndrome, left upper limb (principal); I25.10 Atherosclerotic heart disease of native coronary artery without angina pectoris
CPT/HCPCS: 64721; A6223; J0665; J2405; J2704; J3010; J0702

== ENCOUNTER 2025-05-26 12:39 | Inpatient (IN) | payer OTHER ==
[2025-05-26] MEDS ORDERED: niCARdipine 25 MG/10 ML SDV ONE (14:19)
[2025-05-26] MEDS ORDERED: Acetaminophen 325 MG TAB PO PRN (14:27)
[2025-05-26] MEDS ORDERED: Ondansetron PF 4 MG/2 ML Vial IVP PRN (14:27)
[2025-05-26] MEDS ORDERED: Glucagon 1 MG/ML KIT IM PRN (14:27)
[2025-05-26] MEDS ORDERED: Acetaminophen/Codeine 30-300mg Tablet PO PRN (14:27)
[2025-05-26] MEDS ORDERED: hydrALAZINE 20 MG/ML VIAL SLOW IVP PRN (14:27)
[2025-05-26] MEDS ORDERED: Dextrose 50% Abboject 50 ML SYRINGE SLOW IVP PRN (14:27)
[2025-05-26] MEDS: TETANUS, DIPHTHERIA TOX,ADULT (TDVAX) 0.5 ML VIAL IM ONE (16:00)
[2025-05-26 16:48] VITALS: BMI 27.6
[2025-05-26] MEDS ORDERED: niCARdipine 25 MG in Sodium Chloride 0.9% 250 ML 250 ML IVPB SCH (20:15)
[2025-05-26] MEDS: Senokot S 8.6-50 MG TAB PO SCH (20:26)
[2025-05-26] MEDS: Gabapentin 300 MG CAP PO SCH (20:59)
[2025-05-26] MEDS: Metoprolol Succinate XL 25 MG ER.TAB PO SCH (20:59)
[2025-05-27] MEDS: TETANUS AND DIPHTHERIA TOX/PF 0.5 ML DISP.SYRIN IM SCH (00:54)
[2025-05-27 07:03] LABS: #Basophils 0.08 10x3/uL (0.0-0.2); #Eosinophils 0.20 10x3/uL (0.0-0.7); #Monocytes 1.14 10x3/uL (0.11-0.59); #Neutrophils 6.27 10x3/uL (1.40-6.50); %Basophils 0.9 % (0.0-1.0); %Eosinophils 2.2 % (0.0-10.0); %Lymphocytes 14.9 % (21.0-51.0); %Monocytes 12.6 % (0.0-10.0); %Neutrophils 69.2 % (42.0-75.0); Hematocrit 38.7 % (42.0-52.0); Hemoglobin 12.6 g/dL (14.0-18.0); Mean Corpuscular Hemoglobin 32.4 pg (27.0-31.0); Mean Corpuscular Volume 99.5 fL (78.0-98.0); Platelet Count 165 10x3/uL (130-400); Red Blood Cell (RBC) Count 3.89 mill/uL (4.70-6.10); White Blood Cell (WBC) Count 9.06 10x3/uL (4.8-10.8)
[2025-05-27 07:17] LABS: Anion Gap 14 mmol/L (10-20); BUN (Urea Nitrogen) 10 mg/dL (8.4-25.7); Calc. Creatinine Clearance 77 mL/min (70-130); Calcium 9.7 mg/dL (7.8-10.44); Carbon Dioxide 28 mmol/L (23-31); Chloride 107 mmol/L (98-107); Glucose 111 mg/dL (83-110); Potassium 4.6 mmol/L (3.5-5.1); Sodium 144 mmol/L (136-145)
[2025-05-27] MEDS: Metoprolol Succinate XL 25 MG ER.TAB PO SCH (09:14)
[2025-05-27 11:59] VITALS: BP 125/79
[2025-05-27 14:17] VITALS: TEMP 98.1
== END 2025-05-27 15:10 | disposition home or self-care (01) | DRG 87 ==
LOC: ERS 12:39 → CCU 14:36
PROVIDERS: ADMIT Surgery; ATTEND Surgery
DX: S06.6X1A Traumatic subarachnoid hemorrhage with loss of consciousness of 30 minutes or less, initial encounter (principal); W19.XXXA Unspecified fall, initial encounter; I11.0 Hypertensive heart disease with heart failure; I50.9 Heart failure, unspecified; E78.5 Hyperlipidemia, unspecified; D64.9 Anemia, unspecified; Z98.890 Other specified postprocedural states; Z95.0 Presence of cardiac pacemaker; R40.2362 Coma scale, best motor response, obeys commands, at arrival to emergency department; R40.2142 Coma scale, eyes open, spontaneous, at arrival to emergency department; R40.2252 Coma scale, best verbal response, oriented, at arrival to emergency department; E78.00 Pure hypercholesterolemia, unspecified; Z95.2 Presence of prosthetic heart valve; I08.1 Rheumatic disorders of both mitral and tricuspid valves; F41.9 Anxiety disorder, unspecified; F32.A Depression, unspecified; Z79.899 Other long term (current) drug therapy
CPT/HCPCS: 36415; 70450; 71045; 72125; 80048; 85025; 93005; 93010; 96365; 96375; G0390

== ENCOUNTER 2025-06-12 12:42 | Outpatient (CLI) | payer OTHER | END 2025-06-12 12:43 | disposition home or self-care (01) | LOC: CT 12:42 | PROVIDERS: ATTEND Neurological Surgery | DX: S06.6XAD Traumatic subarachnoid hemorrhage with loss of consciousness status unknown, subsequent encounter (principal); G31.9 Degenerative disease of nervous system, unspecified | CPT/HCPCS: 70450 ==

== ENCOUNTER 2025-06-26 09:30 | Outpatient (CLI) | payer OTHER | END 2025-06-26 09:31 | disposition home or self-care (01) | LOC: PET 09:30 | PROVIDERS: ATTEND Internal Medicine Hematology & Oncology | DX: C61 Malignant neoplasm of prostate (principal); M81.8 Other osteoporosis without current pathological fracture; C79.51 Secondary malignant neoplasm of bone; T14.8XXA Other injury of unspecified body region, initial encounter | CPT/HCPCS: 78815; A9595 ==